=== PATIENT | male | born 1975 | race Caucasian/White ===

== ENCOUNTER 2023-07-13 10:37 | Emergency (ER) | payer SELFPAY ==
[2023-07-13 10:41] VITALS: BP 164/107; PULSE 106; RESP 20; TEMP 37.3; O2SAT 98; BMI 24.3
--- NOTE | 2023-07-13 10:43 | XR_ITS ---
The [address] [address] Patient Name: FREDRICK RUSH MRN: [id number] date: 1975 Sex: M Assigned Patient Location: ER Current Patient Location: ED.MAIN Accession/Order Number: [id number] Exam Date: 07/13/2023 10:50 Report Date: 07/13/2023 11:15 At the request of: DIAN YOUSIF Procedure: XR ankle RT min 3V RIGHT ANKLE X-RAY THREE VIEWS HISTORY: Pain. COMPARISON: None. FINDINGS: There is significant soft tissue swelling. There is an ankle joint effusion. There is no acute fracture or dislocation. XR/XR ankle RT min 3V IMPRESSION: Significant soft tissue swelling with ankle joint effusion, no acute bony abnormality. If patient with persistent pain, recommend MRI right ankle without contrast. Electronically authenticated by: NAT BRENNAN Date: 07/13/2023 11:15
--- NOTE | 2023-07-13 10:46 | ED.FALL1 ---
HPI - Fall General Chief Complaint: Fall Stated Complaint: FALL Time Seen by Provider: 07/13/23 10:40 Source: patient Mode of arrival: walk-in History of Present Illness HPI Narrative: 48-year-old male presents for right ankle pain. He fell off of a ladder yesterday and complains of pain only in the ankle. His knee and foot ddon't hurt. He didn't hit his head. He's been able to walk but it's been bruised and swollen so he came in to get checked. The pain is moderate. Related Data Home Medications Medication Instructions Recorded Confirmed No Known Home Medications 07/13/23 07/13/23 Allergies Allergy/AdvReac Type Severity Reaction Status Date / Time No Known Drug Allergies Allergy Verified 07/13/23 10:43 Review of Systems ROS Narrative A ten point review of systems is negative except as noted above. Exam Narrative Exam Narrative: Nurses note and vital signs reviewed and patient is not hypoxic. General: The patient appears well and in no apparent distress. Patient is resting comfortably on cart. Skin: Warm, dry, no pallor noted. There is no rash noted. Head: Normocephalic, atraumatic Eye: Normal conjunctiva, no drainage Ears, Nose, Mouth, and Throat: oral mucosa is moist. Nares patent. Cardiovascular: Regular Rate and Rhythm Respiratory: Patient is in no distress, no accessory muscle use, lungs are clear to auscultation, no wheezing, rales or rhonchi Back: non-tender GI: nontender Musculoskeletal: right knee is nontender. The right foot including the 5th metatarsal area is nontender. He has bruising and swelling at the right ankle. Skin intact. Neurological: A&O, normal speech Psychiatric: Cooperative Constitutional Vital Signs, click to edit/add: Last Vital Signs Temp 99.1 F 07/13/23 10:41 Pulse 106 H 07/13/23 10:41 Resp 20 07/13/23 10:41 BP 164/107 H 07/13/23 10:41 Pulse Ox 98 07/13/23 10:41 O2 Del Method Room Air 07/13/23 10:41 Course Vital Signs Vital signs: Vital Signs Temperature 99.1 F 07/13/23 10:41 Pulse Rate 106 H 07/13/23 10:41 Respiratory Rate 20 07/13/23 10:41 Blood Pressure 164/107 H 07/13/23 10:41 Pulse Oximetry 98 07/13/23 10:41 Oxygen Delivery Method Room Air 07/13/23 10:41 Temperature 99.1 F 07/13/23 10:41 Pulse Rate 106 H 07/13/23 10:41 Respiratory Rate 20 07/13/23 10:41 Blood Pressure 164/107 H 07/13/23 10:41 Pulse Oximetry 98 07/13/23 10:41 Oxygen Delivery Method Room Air 07/13/23 10:41 MDM - Fall MDM Narrative Medical decision making narrative: x-ray per radiologist shows no fracture. I'm suspicious of ligamentous injury. Sohan wrap applied and application checked by me and found be appropriate, he is neurovascularly intact. He is also placed on crutches and will follow-up with podiatry. Treatment diagnosis and follow-up were discussed with the patient and his . He does not want any pain medication and he has ibuprofen at home that he can take. Differential Diagnosis Differential diagnosis: Likely other (ankle fracture, ankle strain) Imaging Data ankle x-ray: Radiologist's impression: Procedure: XR ankle RT min 3V RIGHT ANKLE X-RAY THREE VIEWS HISTORY: Pain. COMPARISON: None. FINDINGS: There is significant soft tissue swelling. There is an ankle joint effusion. There is no acute fracture or dislocation. IMPRESSION: Significant soft tissue swelling with ankle joint effusion, no acute bony abnormality. If patient with persistent pain, recommend MRI right ankle without contrast. Electronically authenticated by: NAT BRENNAN Date: 07/13/2023 11:15 Discharge Plan Discharge Chief Complaint: Fall Clinical Impression: Ankle sprain Patient Disposition: Home, Self-Care Time of Disposition Decision: 11:23 Condition: Good Mode of Transportation: Private Vehicle Prescriptions / Home Meds: No Action No Known Home Medications Instructions: Ankle Sprain (ED) Stand Alone Forms: Portal Instructions Referrals: Physician,Non-Staff, MD [Primary Care Provider] - 1 week
== END 2023-07-13 11:33 | disposition home or self-care (01) ==
PROVIDERS: Emergency Provider Emergency Medicine
DX: S93.401A Sprain of unspecified ligament of right ankle, initial encounter (principal); W11.XXXA Fall on and from ladder, initial encounter
CPT/HCPCS: 73610; 99283